=== PATIENT | female | born 1960 | race African-American/Black ===

== ENCOUNTER 2023-09-21 16:04 | Emergency (ER) | payer OTHER, SELFPAY ==
--- NOTE | ~2023-09-21 | CT_ITS ---
EXAMINATION: CT CERVICAL SPINE WITHOUT CONTRAST CLINICAL INFORMATION: Fall. Head strike. COMPARISON: None available. TECHNIQUE: Noncontrast computed tomography of the cervical spine was performed. This CT examination was performed using dose optimization techniques as appropriate, variously including the following: *Automated exposure control *Adjustment of mA and/or kV according to patient size (this includes techniques or standardized protocols for targeted exams where dose is matched to indication/reason for exam; i.e. extremities or head) *Use of iterative reconstruction technique DLP: 262 mGy-cm FINDINGS: There is straightening and reversal of the normal cervical lordosis. There is mild retrolisthesis of C6 in relation to C7. Spinal alignment is otherwise anatomic in the sagittal projection. The facet joints are anatomically aligned. Vertebral bodies demonstrate preserved stature. There is moderate narrowing of the C6-C7 intervertebral disc space. There is endplate sclerosis and anterior osteophytosis. The prevertebral soft tissue is normal in appearance. The C1-C2 relationship is anatomic. The dens is intact. There is no acute fracture. The paraspinal soft tissue is normal in appearance. The lung apices demonstrate biapical pleural-parenchymal thickening. The thyroid gland is normal in appearance. CT/CT cervical spine wo IV con IMPRESSION: No acute osseous cervical spine abnormality. There is multilevel spondylosis, most severe at C6-C7 as described. Fleischner guidelines were followed.
--- NOTE | ~2023-09-21 | CT_ITS ---
EXAMINATION: CT HEAD WITHOUT CONTRAST CLINICAL INFORMATION: Head trauma, head strike COMPARISON: None available TECHNIQUE: Contiguous axial imaging was performed from the skull base to vertex without intravenous administration of contrast. This CT examination was performed using dose optimization techniques as appropriate, variously including the following: *Automated exposure control *Adjustment of mA and/or kV according to patient size (this includes techniques or standardized protocols for targeted exams where dose is matched to indication/reason for exam; i.e. extremities or head) *Use of iterative reconstruction technique DLP: 567 mGy-cm FINDINGS: CT examination of the brain shows mild bilateral white matter hypodensities are evident, likely on the basis of chronic microvascular ischemic disease. Silva-white differentiation is otherwise preserved. The ventricles and sulci are normal in size and configuration. No acute hemorrhage, mass effect or shift is evident. In the posterior fossa, the brainstem, cerebellum and fourth ventricle are unremarkable. The orbits and bony calvarium are intact. The paranasal sinuses and mastoid air cells are well pneumatized and clear. CT/CT head/brain wo IV con IMPRESSION: 1. Mild involutional changes and microvascular disease. 2. No acute hemorrhage, mass effect, shift or acute intracranial pathology.
--- NOTE | ~2023-09-21 | XR_ITS ---
EXAMINATION: XR CHEST 2 VIEW CLINICAL INFORMATION: Syncope COMPARISON: None TECHNIQUE: PA and lateral views of the chest obtained. FINDINGS: The lungs are clear. There are no pleural effusions. The cardiomediastinal silhouette is normal. XR/XR chest 2V IMPRESSION: No acute cardiopulmonary disease.
[2023-09-21 16:58] VITALS: BP 144/75; PULSE 73; RESP 16; TEMP 36.8; O2SAT 100; BMI 25.0
--- NOTE | 2023-09-21 16:58 | ED.GENADULT ---
HPI - General Adult General Chief complaint: Fall Stated complaint: Fell - hit head Time Seen by Provider: 09/21/23 21:50 Source: patient Mode of arrival: ambulatory Limitations: no limitations History of Present Illness HPI narrative: Patient with history of arthritis no known history of seizures 2 days ago patient while sitting at the edge of the bed noticed shaking of the right hand followed by head and then next thing she found herself on the floor patient fell on 08/07 also per at that time she did not have any seizure but felt dizzy that time denies any headache no sleep deprivation no history of use of Wellbutrin and tramadol or substance abuse Related Data Allergies Allergy/AdvReac Type Severity Reaction Status Date / Time No Known Allergies Allergy Verified 09/21/23 17:06 Review of Systems Review of Systems: Yes all other systems are reviewed and are negative PMFSH Past Medical History Onset Date is defined in the Problem List Problems that require an onset date and time if occurred within 24 hrs of arrival to the ED Aortic Dissection and Rupture; Neurologic impairment; Cardiopulmonary Arrest; Endotracheal Intubation; Insertion or Replacement of Mechanical Circulatory Assist Device Medical History (Updated 09/21/23 @ 22:35 by Micky Clark MD) Arthritis Surgical History (Updated 09/21/23 @ 22:35 by Micky Clark MD) History of left knee replacement Social History Social History Advance Directives: No Advance Directives Information Provided: No Physical Exam ED Vital Signs: Vital Signs - 24 hr 09/21/23 16:58 09/21/23 22:09 Temperature 98.2 F 98.0 F Pulse Rate 73 66 Respiratory Rate 16 17 Blood Pressure 144/75 H 129/77 Pulse Oximetry 100 98 Oxygen Delivery Method Room Air Room Air BMI result Body Mass Index 25.0 Appearance: Alert. Oriented X3. No acute distress. Eyes: No pallor or icterus HEENT: Pharynx normal. Oral Mucosa moist, AT NC Neck: Normal inspection. Neck supple. CVS: Normal heart rate and rhythm. Pulses normal. Respiratory: No respiratory distress. Equal air entry bilateral, no wheezing/rales/rhonchi Abdomen: Soft and nontender. Bowel sounds are present, no mass palpable, no CVA tenderness Skin: Skin warm and dry. Normal skin color. Normal skin turgor. Extremities: No lower extremity edema. No calf tenderness stiff left knee Neuro: Oriented X 3. No motor deficit. No sensory deficit.No cerebellar signs , cranial nerves II-XII intact Course Course Course Narrative: RME performed by Rima Dukes PA-C. Patient is a 63 year old assigned female at presenting to the emergency department with a headache after a fall, +LOC. Detailed physical exam and review of systems are deferred to the career services representative. Labs, imaging, and swabs ordered. Patient placed back in the waiting room pending room availability and results. Medical Decision Making Medical Decision Making [facility] Narrative: Patient likely had complex partial seizure unwitnessed labs head CT and cervical spine CT is negative patient advised to follow with PCP/neurologist for further evaluation included EEG for medical management Differential Diagnosis Differential Diagnoses: The differential diagnosis associated with the presentation includes Seizures/syncope Lab Data [facility] Lab Attestation statement: I reviewed the patient's lab results. 09/21/23 19:26 09/21/23 17:31 Labs: Lab Results 09/21/23 09/21/23 Range/Units 17:31 19:26 WBC 8.0 (4.8-10.8) X10*3/uL RBC 4.39 (4.20-5.50) X10*6/uL Hgb 12.6 (12.0-16.0) g/dl Hct 39.0 (37.0-47.0) % MCV 88.8 (80.0-98.0) fL MCH 28.7 (27.0-33.0) pg MCHC 32.3 (31.0-35.0) g/dl RDW 16.4 H (11.0-16.0) % Plt Count 380 (160-400) X10*3/uL MPV 9.5 (9.4-12.3) fL Immature Gran % (Auto) 0.5 H (0.0-0.4) % Neut % (Auto) 72.4 (45-73) % Lymph % (Auto) 20.8 (20-40) % Mccracken % (Auto) 4.5 (2-11) % Eos % (Auto) 1.3 (0-4) % Baso % (Auto) 0.5 (0-2) % Lymph # (Auto) 1.7 (1.2-4.9) X10*3/uL Mccracken # (Auto) 0.4 (0.1-1.2) X10*3/uL Eos # (Auto) 0.1 (0.0-0.4) X10*3/uL Baso # (Auto) 0.0 (0.0-0.2) X10*3/uL Abs Immat Gran (auto) 0.04 H (0.00-0.03) X10*3/uL Absolute Neuts (auto) 5.8 (2.0-8.3) x10*3/uL Absolute Nucleated RBC 0.000 (0.0-0.012) X10*3/uL Nucleated RBC % (auto) 0.0 (0.0-0.2) /100WBC PT 13.0 (11.1-13.3) SEC INR 1.1 (0.9-1.1) APTT 33.4 (26.0-36.4) SEC Sodium 136 (135-145) mmol/L Potassium 5.0 (3.3-5.1) mmol/L Chloride 110 H (96-108) mmol/L Carbon Dioxide 17 L (22-29) mmol/L Anion Gap 14 (12-20) BUN 11 (9-16) mg/dL Creatinine 0.75 (0.5-1.4) mg/dL Estim Creat Clear Calc 73.7 Estimated GFR > 60 Random Glucose 84 (60-115) mg/dL Calcium 9.4 (8.4-10.2) mg/dL Magnesium 2.3 (1.6-2.6) mg/dL Total Bilirubin 0.4 (0.0-1.0) mg/dL AST 20 (5-31) U/L ALT 17 (0-31) U/L Alkaline Phosphatase 77 (39-117) U/L Troponin I High Sens < 2.7 (<3.5-17.0) ng/L Total Protein 7.7 (6.5-8.0) g/dL Albumin 3.9 (3.5-5.0) g/dL Influenza Type A (PCR) NEGATIVE (Negative) Influenza Type B (PCR) NEGATIVE (Negative) RSV RNA Qual (PCR) NEGATIVE (Negative) SARS-CoV-2 RNA (RT-PCR) NEGATIVE (Negative) Independent Interpretation I performed an independent interpretation of an: EKG and CT Scan Interpretation: Normal sinus rhythm heart rate 70 beats per minute normal axis normal interval no acute ischemia Radiology Impression Discussion of test interpretation with radiology: I have reviewed the radiologist's reading. Discharge Plan Discharge Clinical Impression: Complex partial seizure disorder Patient Disposition: Home, Self-Care Instructions: Epilepsy (ED) Additional Instructions: Possible you had a complex partial seizure, which needs further evaluation and management Need to see neurologist/PCP for EEG Follow-up with neurologist for medication management Report to the ER if recurrence of the seizure Referrals: Huey Lockhart MD [Physician] - 1 week Interventions: ED Discharge Assessment Last Done: 09/21/23 22:31
--- NOTE | 2023-09-21 16:59 | ECG_ITS ---
Test Reason : FALL Blood Pressure : / mmHG Vent. Rate : 070 BPM Atrial Rate : 070 BPM P-R Int : 160 ms QRS Dur : 072 ms QT Int : 406 ms P-R-T Axes : 046 -04 017 degrees QTc Int : 438 ms Normal sinus rhythm Normal ECG No previous ECGs available Referred By: Rima Dukes Electronically Signed By:LISA BUTLER MD
[2023-09-21 18:08] LABS: Alanine Aminotransferase 17 U/L (0-31); Albumin Level 3.9 g/dL (3.5-5.0); Alkaline Phosphatase 77 U/L (39-117); Anion Gap 14 (12-20); Aspartate Amino Transferase 20 U/L (5-31); Bilirubin Total 0.4 mg/dL (0.0-1.0); Blood Urea Nitrogen 11 mg/dL (9-16); Calcium 9.4 mg/dL (8.4-10.2); Carbon Dioxide 17 mmol/L (22-29); Chloride 110 mmol/L (96-108); Creatinine Clr Calc Pharmacy 73.7; Estimated Glomerular Filt Rate > 60; Glucose Random 84 mg/dL (60-115); Magnesium 2.3 mg/dL (1.6-2.6); Sodium 136 mmol/L (135-145); Total Protein 7.7 g/dL (6.5-8.0)
[2023-09-21 18:17] LABS: Influenza A PCR NEGATIVE (Negative); Influenza B PCR NEGATIVE (Negative); Resp Syncy Virus RNA Qual PCR NEGATIVE (Negative); SARS COV2 PCR INHOUSE NEGATIVE (Negative)
[2023-09-21 19:00] LABS: Troponin-I High Sensitivity < 2.7 ng/L (<3.5-17.0)
--- NOTE | 2023-09-21 19:28 | MHC.EDTECH ---
Patient brought in to triage area, labs were obtained and sent t o lab.
[2023-09-21 19:32] LABS: MANUAL DIFF FLAG NO
[2023-09-21 19:33] LABS: Basophils Percent Auto 0.5 % (0-2); Eosinophils Absolute Auto 0.1 X10*3/uL (0.0-0.4); Eosinophils Percent Auto 1.3 % (0-4); Hemoglobin 12.6 g/dl (12.0-16.0); Imm Gran Abs Auto 0.04 X10*3/uL (0.00-0.03); Imm Gran Pct Auto 0.5 % (0.0-0.4); Lymphocytes Absolute Auto 1.7 X10*3/uL (1.2-4.9); Lymphocytes Percent Auto 20.8 % (20-40); Mean Corpuscular HGB Conc 32.3 g/dl (31.0-35.0); Mean Corpuscular Hemoglobin 28.7 pg (27.0-33.0); Mean Corpuscular Volume 88.8 fL (80.0-98.0); Mean Platelet Volume 9.5 fL (9.4-12.3); Monocytes Absolute Auto 0.4 X10*3/uL (0.1-1.2); Monocytes Percent Auto 4.5 % (2-11); Neutrophils Absolute Auto 5.8 x10*3/uL (2.0-8.3); Neutrophils Percent Auto 72.4 % (45-73); Platelet Count 380 X10*3/uL (160-400); Red Blood Count 4.39 X10*6/uL (4.20-5.50); Red Cell Distribution Width 16.4 % (11.0-16.0)
[2023-09-21 19:39] LABS: INTERNATIONAL NORM RATIO 1.1 (0.9-1.1)
[2023-09-21 19:42] LABS: Partial Thromboplastin Time 33.4 SEC (26.0-36.4)
[2023-09-21 22:09] VITALS: BP 129/77; PULSE 66; RESP 17; TEMP 36.7; O2SAT 98
== END 2023-09-21 22:31 | disposition home or self-care (01) ==
PROVIDERS: Physician Assistant Medical; Emergency Provider Internal Medicine; PCP Family Medicine
DX: G40.209 Localization-related (focal) (partial) symptomatic epilepsy and epileptic syndromes with complex partial seizures, not intractable, without status epilepticus (principal); R55 Syncope and collapse; M54.2 Cervicalgia; R51.9 Headache, unspecified; Z20.822 Contact with and (suspected) exposure to COVID-19; Z20.828 Contact with and (suspected) exposure to other viral communicable diseases; Z79.899 Other long term (current) drug therapy
CPT/HCPCS: 0241U; 36415; 70450; 71046; 72125; 80053; 83735; 84484; 85025; 85610; 85730; 93005; 99284

== ENCOUNTER → 2023-09-21 16:59 | Outpatient (BNV) | payer OTHER, SELFPAY | PROVIDERS: Emergency Provider Internal Medicine; PCP Family Medicine; Visit Provider Internal Medicine Cardiovascular Disease | DX: R55 Syncope and collapse (principal) | CPT/HCPCS: 93010 ==